=== PATIENT | male | born 1945 | race Caucasian/White ===

== ENCOUNTER 2017-11-12 09:05 | Emergency (ER) | payer OTHER ==
[~2017-11-12] VITALS: Ht 185.4 cm; Wt 95.0 kg
[~2017-11-12 09:05] MED LIST: COQ150CA OR; DICL75 PO; DIVA250ER PO; FLEC100 PO; GLUC15009 PO; HAWT1CAP PO; METO50TA PO; RIVA20 PO; SUMA50 PO; ZOCO20TA PO
[2017-11-12 09:10] VITALS: BP 166/100; PULSE 84; RESP 16; TEMP 98.1; O2SAT 98
[2017-11-12] MEDS ORDERED: LISI2.5T3 PO (09:22)
[2017-11-12] MEDS ORDERED: FISHCAP4 PO (09:22)
[2017-11-12] MEDS ORDERED: SOTA80TA PO (09:22)
[2017-11-12] MEDS ORDERED: GLUC500T4 PO (09:22)
[2017-11-12] MEDS ORDERED: ASPI81CH6 CHEW (09:22)
[2017-11-12] MEDS ORDERED: ATOR20TA15 PO (09:22)
[2017-11-12] MEDS ORDERED: VITA250C3 CHEW (09:22)
[2017-11-12] MEDS ORDERED: VITA500T4 PO (09:22)
[2017-11-12] MEDS ORDERED: COQ-100C5 PO (09:22)
[2017-11-12] MEDS ORDERED: tumeric PO (09:22)
[2017-11-12] MEDS ORDERED: LISI10TA3 PO (09:23)
[2017-11-12] MEDS ORDERED: AMLO2.5T PO (09:23)
--- NOTE | 2017-11-12 09:32 | PD ---
HPI Chief Complaint: Cardiac Complaint Time Seen by Provider: 09:15 Travel History International Travel<30 days: No Contact w/Intl Traveler<30days: No Traveled to known affect area: No History of Present Illness HPI 72yo M with PMH of HTN presents to the ED for atrial fibrillation. Pt said he was feeling funny 2 weeks ago and went to a production associate in [place] and had a recorder on for 5 days. Pt receive a call from their office yesterday that he was in atrial fibrillation or atrial flutter for 5 days. Pt has a history of atrial fibrillation and had ablation 3 years ago that seems to have resolved it. Pt moved here and does not have a production associate yet. Denies any fever, chest pain, sob, n/v, abdominal pain, focal weakness or numbness. PFSH Past Medical History Heart Rhythm Problems: Yes (afib, also mitral valve leak) Cancer: Yes (prostate) Cardiovascular Problems: Yes (CARDIAC RYTHM PROBLEMS) High Cholesterol: Yes Coronary Artery Disease: Yes Diminished Hearing: No Genitourinary: Yes Hypertension: Yes Musculoskeletal: No Neurologic: No Immunizations Current: Yes Triglycerides - High: Yes Influenza Vaccination: No Past Surgical History Abdominal Surgery: Yes (hernia) Body Medical Devices: pins in jaw Cardiac Surgery: Yes (2 ABLATIONS) Other Surgery: Yes Social History Alcohol Use: Yes (2-3 DRINKS PER DAY) Tobacco Use: No Substance Use: No Allergies-Medications (Allergen,Severity, Reaction): Coded Allergies: flecainide (Verified Allergy, Unknown, 11/12/17) Reported Meds & Prescriptions Reported Meds & Active Scripts Active Eliquis (Apixaban) 5 Mg Tab 5 Mg PO BID 14 Days Reported Amlodipine (Amlodipine Besylate) 2.5 Mg Tab 2.5 Mg PO DAILY Lisinopril 10 Mg Tab 10 Mg PO HS Aspirin Low Dose (Aspirin) 81 Mg Chew 81 Mg CHEW DAILY Glucosamine-Chondroitin 500-400 Mg Tab 1 Tab PO DAILY Vitamin B-12 (Cyanocobalamin) 500 Mcg Tab 1,000 Mcg PO DAILY Fish Oil + D3 (Fish Oil-Cholecalciferol) 1,200-1,000 Mg-Unit Cap 1 Cap PO DAILY [tumeric] 1,000 Mg PO DAILY Vitamin C (Ascorbic Acid) 250 Mg Chew 500 Mg CHEW BID Coq-10 Tr (Coenzyme Q10 (Ubidecarenone)) 100 Mg Cap 100 Mg PO BID Atorvastatin (Atorvastatin Calcium) 20 Mg Tab 20 Mg PO HS Sotalol (Sotalol HCl) 80 Mg Tab 80 Mg PO BID Review of Systems Except as stated in HPI: all other systems reviewed are Neg Physical Exam Narrative GENERAL: 72yo M not in distress. SKIN: Focused skin assessment warm/dry. HEAD: Atraumatic. Normocephalic. CARDIOVASCULAR: Irregular, in the 90s. No murmur appreciated. RESPIRATORY: No accessory muscle use. Clear to auscultation. Breath sounds equal bilaterally. GASTROINTESTINAL: Abdomen soft, non-tender, nondistended. MUSCULOSKELETAL: No obvious deformities. No clubbing. No cyanosis. No edema. NEUROLOGICAL: Awake and alert. No obvious cranial nerve deficits. Motor grossly within normal limits. Normal speech. PSYCHIATRIC: Appropriate mood and affect; insight and judgment normal. Data Data Last Documented VS Vital Signs Date Time Temp Pulse Resp B/P (MAP) Pulse Ox O2 Delivery O2 Flow Rate FiO2 11/12/17 10:26 93 18 116/97 (103) 98 Room Air 11/12/17 09:10 98.1 Orders Orders Complete Blood Count With Diff (11/12/17 09:27) Basic Metabolic Panel (Bmp) (11/12/17 09:27) Magnesium (Mg) (11/12/17 09:27) Thyroid Stimulating Hormone (11/12/17 09:27) Apixaban (Eliquis) (11/12/17 10:30) Labs Laboratory Tests Test 11/12/17 09:40 White Blood Count 6.3 TH/MM3 Red Blood Count 5.56 MIL/MM3 Hemoglobin 15.9 GM/DL Hematocrit 48.3 % Mean Corpuscular Volume 86.8 FL Mean Corpuscular Hemoglobin 28.6 PG Mean Corpuscular Hemoglobin Concent 32.9 % Red Cell Distribution Width 14.1 % Platelet Count 235 TH/MM3 Mean Platelet Volume 7.9 FL Neutrophils (%) (Auto) 72.2 % Lymphocytes (%) (Auto) 17.6 % Monocytes (%) (Auto) 6.6 % Eosinophils (%) (Auto) 3.0 % Basophils (%) (Auto) 0.6 % Neutrophils # (Auto) 4.6 TH/MM3 Lymphocytes # (Auto) 1.1 TH/MM3 Monocytes # (Auto) 0.4 TH/MM3 Eosinophils # (Auto) 0.2 TH/MM3 Basophils # (Auto) 0.0 TH/MM3 CBC Comment DIFF FINAL Differential Comment Blood Urea Nitrogen 14 MG/DL Creatinine 0.97 MG/DL Random Glucose 104 MG/DL Calcium Level 8.8 MG/DL Magnesium Level 1.9 MG/DL Sodium Level 139 MEQ/L Potassium Level 4.3 MEQ/L Chloride Level 104 MEQ/L Carbon Dioxide Level 27.8 MEQ/L Anion Gap 7 MEQ/L Estimat Glomerular Filtration Rate 76 ML/MIN Thyroid Stimulating Hormone 3rd Gen 1.410 uIU/ML [facility] Medical Decision Making Medical Screen Exam Complete: Yes Emergency Medical Condition: Yes Interpretation(s) EKG: Afib at 96bpm. PVCs. No ST segment elevation or depression. Differential Diagnosis Recurrent atrial fibrillation vs. electrolyte abnormality vs. hyperthyroidism Narrative Course 72yo M here because he was told that he has been in afib. Pt is not complaining of any symptoms and currently rate is in the 90s. Labs reviewed, no leukocytosis. BMP unremarkable. TSH normal. [id number] score of 2 so I would recommend anticoagulation. Pt was on anticoagulation when he had afib 3 years ago but cant remember what it was. Will start him on eliquis. First dose given here. Will refer him to our production associate. Return precautions given. Diagnosis Primary Impression: Atrial fibrillation Qualified Codes: I48.91 - Unspecified atrial fibrillation Referrals: Rolando Hernandez MD Patient Instructions: General Instructions Departure Forms: Tests/Procedures Additional Instructions: Please follow up with cardiology as soon as possible. Return to the ED if you have chest pain, sob, or any other symptoms. Med/Other Pt SpecificInfo: Prescription(s) given Scripts Apixaban (Eliquis) 5 Mg Tab 5 MG PO BID for Blood Clot Prevention for 14 Days, #28 TAB 0 Refills Prov: Swetha Coulter 11/12/17 Disposition: 01 DISCHARGE HOME Condition: Stable Swetha Coulter Nov 12, 2017 09:32
[2017-11-12 09:43] LABS: AUTOMATED NEUTROPHIL # 4.6 TH/MM3 (1.8-7.7); BASOPHIL % 0.6 % (0.0-2.0); EOSINOPHIL # 0.2 TH/MM3 (0-0.4); HEMATOCRIT 48.3 % (39.0-51.0); HEMOGLOBIN 15.9 GM/DL (13.0-17.0); LYMPH % 17.6 % (9.0-44.0); LYMPHOCYTE # 1.1 TH/MM3 (1.0-4.8); MEAN CELL VOLUME 86.8 FL (80.0-100.0); MEAN CORPUSCULAR HEMOGLOBIN 28.6 PG (27.0-34.0); MEAN CORPUSCULAR HGB CONC 32.9 % (32.0-36.0); MEAN PLATELET VOLUME 7.9 FL (7.0-11.0); MONO % 6.6 % (0.0-8.0); MONOCYTE # 0.4 TH/MM3 (0-0.9); NEUT % 72.2 % (16.0-70.0); PLATELET COUNT 235 TH/MM3 (150-450); RED BLOOD COUNT 5.56 MIL/MM3 (4.50-5.90); RED CELL DISTRIBUTION WIDTH 14.1 % (11.6-17.2); WHITE BLOOD COUNT 6.3 TH/MM3 (4.0-11.0)
[2017-11-12 09:55] LABS: BICARBONATE 27.8 MEQ/L (21.0-32.0); CALCIUM 8.8 MG/DL (8.5-10.1); MAGNESIUM 1.9 MG/DL (1.5-2.5)
[2017-11-12 09:59] LABS: CREATININE 0.97 MG/DL (0.60-1.30)
[2017-11-12 10:26] VITALS: BP 116/97; PULSE 93; RESP 18; O2SAT 98
[2017-11-12] MEDS ORDERED: APIX5TAB PO (10:26)
[2017-11-12] MEDS ORDERED: APIXABAN 5 MG TABLET PO ONE (10:30)
--- NOTE | 2017-11-13 12:25 | EKG ---
Date Performed: 11/12/2017 Time Performed: 09:17:12 PTAGE: 72 years EKG: ATRIAL FIBRILLATION WITH ABERRANT CONDUCTION OR VENTRICULAR PREMATURE COMPLEXES Compared to previous tracing, atrial fibrillation and ventricular ectopy new Clinical correlation is recommended ABNORMAL RHYTHM ECG NO PREVIOUS TRACING DOCTOR: Marty Shipley Interpretating Date/Time 11/13/2017 12:23:01
[2017-11-15] MEDS ORDERED: TURM500C7 PO (10:58)
== END 2017-11-12 10:52 | disposition home or self-care (01) ==
LOC: PHED 09:05
DX: I48.91 Unspecified atrial fibrillation (principal); I10 Essential (primary) hypertension; E78.00 Pure hypercholesterolemia, unspecified; I25.10 Atherosclerotic heart disease of native coronary artery without angina pectoris; Z79.01 Long term (current) use of anticoagulants; Z79.82 Long term (current) use of aspirin
CPT/HCPCS: 80048; 83735; 84443; 85025; 93005; 99284

== ENCOUNTER 2018-06-28 07:00 | Inpatient (IN) ==
[2018-07-26] MEDS ORDERED: Metoprolol Tartrate 25 MG Tablet PO ONE (07:28)
[2018-07-26] MEDS ORDERED: Chlorhexidine Gluconate 2% 1 Pack (2 Cloths) TOPICAL ONE (07:28)
[2018-07-26] MEDS ORDERED: Chlorhexidine 4% Topical 120 APPLIC/120 ML Bottle TOPICAL SCH (07:30)
[2018-07-26] MEDS ORDERED: Sodium Chlor 0.9% Inj 40 ML, Bupivacaine Liposo PF 1.3% Inj 20 ML P-ARTICULR SCH ×2 (07:30)
[2018-07-26] MEDS ORDERED: Dexamethasone Inj 20 MG/5 ML Vial IV.PUSH SCH (07:45)
[2018-07-26] MEDS ORDERED: Vancomycin Inj 1,000 MG in Sodium Chlor 0.9% Inj 250 ML IV.SIG SCH (08:00)
[2018-07-26] MEDS ORDERED: TRANEXAMIC ACID IV.SIG SCH ×2 (08:00→13:00)
[2018-07-26] MEDS ORDERED: SODIUM CHLOR 0.9% IV.SIG SCH ×2 (08:00→13:00)
[2018-07-26] MEDS ORDERED: ceFAZolin 2 GM Premix Inj 2 GM/50 ML PIGGYBACK IV.SIG SCH (08:00)
[2018-07-26] MEDS ORDERED: Sodium Chlor 0.9% Inj 500 ML IV.SIG SCH (08:00)
[2018-07-26] MEDS ORDERED: fentaNYL Citrate Inj 250 MCG/5 ML Ampul ONE (09:21)
[2018-07-26] MEDS ORDERED: fentaNYL Citrate Inj 100 MCG/2 ML Ampul ONE (09:21)
[2018-07-26] MEDS ORDERED: Famotidine PF Inj 20 MG/2 ML Vial ONE (09:21)
[2018-07-26] MEDS ORDERED: Phenylephrine/NS 1000 MCG/10ML Syringe IV.PUSH ONE (09:42)
[2018-07-26] MEDS ORDERED: Lidocaine PF 1% Inj 5 ML Syringe OTHER ONE (09:42)
[2018-07-26] MEDS ORDERED: Sugammadex Inj 200 MG/2 ML Vial IV.PUSH ONE (11:31)
[2018-07-26] MEDS ORDERED: Bisacodyl 10 MG Supp RECTAL PRN (11:33)
[2018-07-26] MEDS ORDERED: Morphine Inj 4 MG/ML Vial IV.PUSH PRN (11:33)
[2018-07-26] MEDS ORDERED: Aluminum/Magnesium/Simethacone Susp 30 ML UDC PO PRN (11:33)
[2018-07-26] MEDS ORDERED: Post-op Orders (for Pharmacy) OTHER STA (11:33)
--- NOTE | 2018-07-26 11:36 | P.OP ---
- Preoperative Diagnosis (1) Osteoarthritis of left hip - Postoperative Diagnosis (1) Osteoarthritis of left hip Date of procedure: 07/26/18 Procedure: Left total hip arthroplasty Anesthesia: GETA Surgeon: Rafael Rothman MD Retail Consultant: DRAGAN Cobos The surgical procedure was assisted by my Advanced Registered Nurse Practitioner. My MACHINIST/MACHINE BUILDER presence was necessary throughout this case for the manipulation and positioning of the surgical extremity. My MACHINIST/MACHINE BUILDER was assisting me throughout the duration of this procedure. The skill set of an Advance Registered Nurse Practitioner was medically necessary to complete this procedure. During the surgical case, the neurosurgical nurse practitioner was working at the back table and the Advance Registered Nurse Practitioner was directly assisting me. Operation and Findings: IMPLANT DESCRIPTION: 1. [place] Gription Cup, acetabular size 56. 2. [place] AltrX polyethylene, neutral. 4. [place] femoral stem size 11, no collar, standard offset. 5. Femoral head/neck metal, 36, -2. ESTIMATED BLOOD LOSS: 200 cc. JUSTIFICATION FOR PROCEDURE: The patient has end-stage osteoarthritis to the hip. There is an attached conservative measures pathway form in the chart that describes the nonoperative measures that were undertaken prior to consideration of surgical management. The patient understood the risks and benefits of surgical management. See my office notes for further details. PROCEDURE: The patient was brought back to the operative theatre. Adequate anesthesia was obtained. The patient received intravenous vancomycin and Ancef. The patient was carefully placed on the operative table. The lower extremity was prepped and draped in the usual sterile fashion. Fluoroscopic images were obtained. We made a standard anterior incision over the hip. We dissected through the TFL fascia, exposing the anterior capsule. Arthrotomy was performed in a T-shaped fashion. The capsule was tagged with a #2 FiberWire. End-stage arthritis was identified. Osteotomy was performed through the femoral neck exposing the acetabulum. Remnants of the labrum were resected and osteophytes were removed. We sequentially reamed the acetabulum. We trialed the hip and placed the final cup into position. This was done under fluoroscopic guidance to obtain the appropriate inclination and anteversion. A manhole cover was placed into the acetabular component. We then placed the final polyethylene into position and confirmed that it was well seated. Capsular attachments on the calcar and the inner aspect of the greater trochanter were resected. On the proximal aspect of the femur we used a rongeur , box osteotome, canal finder, sequential broaches and lateralizing rasp. We calcar planed the proximal femur. Then thoroughly irrigated the wound. We trialed the hip with the appropriate size stem. We placed the final stem in to position and trialed again. The hip was stable while it was externally rotated 70 degrees when the leg was lowered to the floor. The final head was applied, and final fluoroscopic images were obtained. The wound was thoroughly irrigated again. Interarticular injection of liposomal bupivacaine was given. The capsule was closed with #2 FiberWire and #1 Vicryl. The deep fascia was closed with a #2 Stratafix, followed by 2-0 Vicryl in the skin and Dermabond dressing. Postop plan is to weight-bear as tolerated. DVT prophylaxis will be performed with SCDs, LIU joshua, early mobilization, and Lovenox followed by aspirin.
[2018-07-26] MEDS ORDERED: *morphine SULFATE 4 MG/ML PERIprocedure ONLY ONE ×2 (12:13→12:27)
[2018-07-26] MEDS: Sod Chloride 0.9% Inj 1,000 ML IV.CONT SCH (12:20)
[2018-07-26] MEDS ORDERED: *Meperidine Inj 25 MG/ML Vial PERIprocedural Use ONLY ONE (12:27)
[2018-07-26] MEDS ORDERED: *morphine SULFATE 10 MG/ML PERIprocedure ONLY ONE (12:53)
--- NOTE | 2018-07-26 13:00 | XR ---
EXAM DATE: 07/26/2018 12:00 AM EDT AGE/SEX: 72 years / Male INDICATIONS: Left total hip replacement. CLINICAL DATA: This is the patient's initial encounter. Patient reports that signs and symptoms have been present for 1 day and indicates a pain score of Nonresponsive. MEDICAL/SURGICAL HISTORY: Non-responsive. Non-responsive. COMPARISON: No prior exams available for comparison. FINDINGS: 3 magnified C-arm spot views are centered over the hips and labeled left. A total hip prosthesis is s een and in good position. No gross fracture on this style of acquisition. CONCLUSION: Total hip prosthesis. Electronically signed by: Blaise Mcmanus MD 07/26/2018 12:59 PM EDT
--- NOTE | 2018-07-26 13:19 | XR ---
EXAM DATE: 07/26/2018 11:33 AM EDT AGE/SEX: 72 years / Male INDICATIONS: Post op left hip surgery. CLINICAL DATA: This is the patient's initial encounter. Patient reports that signs and symptoms have been present for 1 day and indicates a pain score of Nonresponsive. MEDICAL/SURGICAL HISTORY: Non-responsive. Non-responsive. COMPARISON: POI, XR HIP W/ AP PELVIS, BILATERAL, 08/22/2015. . FINDINGS: Views of the pelvis and 2 additional views left hip demonstrates left hip arthroplasty. No hardware l oosening. No acute fracture. Postsurgical changes. Prosthetic seeds are seen. Degenerative changes ri ght hip. CONCLUSION: Postoperative changes left hip. Electronically signed by: Giovany Gil MD 07/26/2018 1:17 PM EDT
--- NOTE | 2018-07-26 14:20 | ECG ---
Date Performed: 07/26/2018 Time Performed: 12:21:15 PTAGE: 72 years EKG: ATRIAL FIBRILLATION NONSPECIFIC ST ABNORMALITY ABNORMAL ECG PREVIOUS TRACING : 11/12/2017 09.17 No significant change from previous tracing noted. DOCTOR: Clive Pro Interpretating Date/Time 07/26/2018 14:19:43
--- NOTE | 2018-07-26 15:33 | P.DCO ---
- Physical Therapy Physical Therapy: Gait training, Transfer training, bed to chair Hip: Total hip Left Lower Extremity Weight Bearing: Weight bearing as tolerated Left Lower Extremity Range of Motion: Active ROM - Nursing Dressing changes: Do not change dressing - Certification Need for Home Health services: I have seen patient Yobany Shultz on 07/26/18. My clinical findings support the need for the requested home health care services because: Need for Home Health Services: Limited ability to care for self, High risk of falls Homebound Certification: I certify that my clinical findings support that this patient is homebound because: Homebound Certification: Post-op weakness, Unsteady gait/balance
[2018-07-26] MEDS: Multivitamin/Minerals Therapeutic Tablet PO SCH (20:35)
[2018-07-26] MEDS: Senna/Docusate Sodium 8.6/50 MG Tablet PO SCH (20:36)
[2018-07-26] MEDS ORDERED: Zolpidem Tartrate 5 MG Tablet PO PRN (21:00)
[2018-07-26] MEDS ORDERED: Lisinopril 10 MG Tablet PO SCH (21:00)
--- NOTE | 2018-07-27 01:44 | MB ---
cc: Demetri Coleman Vincent G DO DATE: 07/26/2018 REASON FOR CONSULTATION: Atrial fibrillation. HISTORY OF PRESENT ILLNESS: Yobany Shultz is a pleasant 72-year-old male who sees my partner, Dr. Medina, in the office and underwent elective left total hip arthroplasty by Dr. Rothman today. I was asked by anesthesia to see him due to his history of atrial fibrillation. Mr. Shultz has had a long history of atrial fibrillation including multiple ablations. He continues to have paroxysmal atrial fibrillation, but since being placed on sotalol, he has done overall well with this. He states even when he is in atrial fibrillation that his heart rate has tripled on sotalol. During the procedure and post-procedure, he has been in atrial fibrillation with controlled ventricular response. In seeing him postoperatively he is doing well with no chest pain, shortness of breath, or palpitations. PAST MEDICAL HISTORY: 1. Paroxysmal atrial fibrillation. 2. Arthritis. 3. COPD. 4. Hyperlipidemia. 5. Shingles. 6. Hypertension. 7. Joint pain. 8. Migraines. 9. Prostate cancer. PAST SURGICAL HISTORY: 1. Left total arthroplasty (07/26/2018). 2. Multiple atrial fibrillation ablations. 3. Hand surgery. 4. Inguinal hernia repair. 5. Mandibular surgery. 6. Mitral valve repair. 7. Tonsillectomy. ALLERGIES: FLECAINIDE. MEDICATIONS: 1. Lisinopril 10 mg every night. 2. Sotalol 120 mg b.i.d. 3. Co-Q10 100 mg b.i.d. 4. Eliquis 5 mg b.i.d. FAMILY HISTORY: Denies premature coronary artery disease or sudden cardiac within the family. SOCIAL HISTORY: The patient is a former smoker. He rarely drinks alcohol. Denies substance abuse. REVIEW OF SYSTEMS: Fourteen systems were reviewed including osteopathic. Pertinent positives and negatives above, otherwise negative. PHYSICAL EXAMINATION: VITAL SIGNS: Temperature 98.2, heart rate 82, blood pressure 137/90, respirations 18, pulse oximetry 97% on 2 liters nasal cannula. GENERAL: The patient appears well, in no acute distress. Alert, awake and oriented x3. HEENT: Extraocular muscles intact. Mucous membranes moist. NECK: Supple. No JVD at 45 degrees. No carotid bruits heard bilaterally. Carotid upstroke is brisk in nature. HEART: Irregularly irregular. Positive first and second sounds with no noted murmurs, gallops or rubs. LUNGS: Clear to auscultation bilaterally. No wheezes, rales, or rhonchi. ABDOMEN: Soft, nontender, nondistended. No organomegaly noted. EXTREMITIES: Show no clubbing, cyanosis, or edema. Femoral and distal pulses are intact bilaterally. NEUROLOGIC: No focal deficits. SKIN: Warm, dry and intact. OSTEOPATHIC: No kyphoscoliosis, lordosis or paraspinal tender points. Electrocardiogram (07/26/2018 at 12:21): Atrial fibrillation with controlled ventricular response. IMPRESSION: 1. Paroxysmal atrial fibrillation. 2. Left total hip arthroplasty, postop day #0. 3. Mild chronic obstructive pulmonary disease. 4. Hyperlipidemia. 5. History of mitral valve prolapse, status post mitral valve repair. 6. Hypertension. 7. Migraines. 8. Prostate cancer. RECOMMENDATIONS: 1. Mr. Shultz underwent left total hip arthroplasty and this will be managed by orthopedics as well as physical therapy. 2. As far as his atrial fibrillation goes, he has a known history of this and this has been controlled with sotalol and today he will continue on his current medications. 3. He has been started on Eliquis 2.5 mg b.i.d. by orthopedics and per their report, he will be discharged back on his Eliquis 5 mg b.i.d. 4. No further workup necessary from a cardiovascular standpoint. He may be discharged home when okay by orthopedics. 5. He will followup with Dr. Medina as previously scheduled. Thank you for allowing me to see Yobany Shultz. If there are any questions, please do not hesitate to call. Demetri Coleman, DO PANCHALP/ , 12:12 AM , 12:23 AM
[2018-07-27] MEDS: Sod Chloride 0.9% Inj 1,000 ML IV.CONT SCH (03:08)
[2018-07-27 04:08] VITALS: RESP 18
[2018-07-27 07:15] LABS: Hematocrit 41.5 % (39.0-51.0)
--- NOTE | 2018-07-27 07:17 | P.PNOP ---
Subjective Interval history: The patient is resting comfortably in bed in no acute distress. The patient reports no pain to the left hip when stationary. The patient reports mild to moderate discomfort with activity. The patient states he does want to go home today with home health. Physical Exam Vital signs: Vital Signs 07/26/18 07:46 07/26/18 12:04 07/26/18 12:15 Temperature 98.8 F 98.5 F Pulse Rate 78 62 64 Respiratory Rate 16 6 L 16 Blood Pressure 152/105 H 141/80 H 149/100 H Pulse Oximetry 99 97 100 07/26/18 12:30 07/26/18 12:45 07/26/18 12:50 Temperature Pulse Rate 73 65 Respiratory Rate 10 L 15 17 Blood Pressure 155/84 H 132/85 Pulse Oximetry 100 96 07/26/18 13:00 07/26/18 14:00 07/26/18 14:19 Temperature 97.8 F 98.7 F Pulse Rate 66 75 Respiratory Rate 17 Blood Pressure 128/96 H 134/98 H Pulse Oximetry 98 93 L 93 L 07/26/18 15:00 07/26/18 15:32 07/26/18 15:35 Temperature Pulse Rate 76 Respiratory Rate 17 14 Blood Pressure 137/90 Pulse Oximetry 97 97 07/26/18 16:00 07/26/18 20:00 07/26/18 23:20 Temperature 98.6 F 98.4 F Pulse Rate 100 H 87 Respiratory Rate 18 20 17 Blood Pressure 166/97 H 148/99 H Pulse Oximetry 96 97 07/26/18 23:50 07/27/18 03:37 07/27/18 04:13 Temperature 98.6 F 98.2 F Pulse Rate 92 H 60 Respiratory Rate 17 18 18 Blood Pressure 118/84 122/74 Pulse Oximetry 95 95 Intake & Output 07/26/18 07/27/18 07/27/18 18:59 06:59 18:59 Intake Total 2428.92 / 2428.92 1100 / 1100 Output Total 700 / 700 Balance 1728.92 / 1728.92 1100 / 1100 Weight 89.2 kg 90 kg Intake: IV 1508.92 / 1508.92 1100 / 1100 NS Inj 1,000 ML @ 80 mls/hr IV. 1000 / 1000 CONT .[id number] [facility] Rx#:[id number] LR 1000 mL Inj 1,000 ML @ 30 1000 / 1000 mls/hr IV.SIG .Q24H [facility] Rx#: [id number] Cyklokapron Inj 892 MG In NS 108.92 / 108.92 Inj 100 ML @ 200 mls/hr IV.SIG ONCE [facility] Rx#:[id number] Vancomycin Inj 1,000 MG In NS 250 / 250 Inj 250 ML @ 250 mls/hr IV.SIG [employer] [facility] Rx#:[id number] Ancef 2 GM Premix Inj 2 gm In 50 / 50 50 ml @ 100 mls/hr IV.SIG [employer]IN DR[employer] [facility] Rx#:[id number] Ancef Inj 1,000 MG In NS Inj 100 / 100 100 / 100 100 ML @ 200 mls/hr IV.SIG Q6H [facility] Rx#:[id number] Oral 120 / 120 Anesthesia Amount 800 / 800 Output: Urine 500 / 500 Estimated Blood Loss 200 / 200 Other: # Voids 3 Date of Last Bowel Movement 07/26/18 07/26/18 Weight On Admission 89.2 kg Narrative: The patient's dressing is clean, dry, and intact. EHL/TA/G are intact. 2+ pedal pulse. The patient's calf is soft and nontender. Sensation is intact to light touch distally. Results - Labs CBC & Chem 7: 07/27/18 03:51 Laboratory Results - last 24 hr 07/26/18 07:00 Blood Type O Positive Blood Type Recheck Required Antibody Screen Negative - Imaging Impressions Hip X-Ray 07/26/18 00:00 CONCLUSION: Total hip prosthesis. Hip X-Ray 07/26/18 11:33 CONCLUSION: Postoperative changes left hip. - Procedures Left total hip arthroplasty Assessment and Plan - Problem List (1) Status post total hip replacement, left Code(s): Z96.642 - Presence of left artificial hip joint Status: Acute (2) Osteoarthritis of left hip Code(s): M16.12 - Unilateral primary osteoarthritis, left hip Status: Acute - Assessment and Plan POD #1: Left total hip arthroplasty 1. Weightbearing as tolerated on left lower extremity. 2. Eliquis 2.5 mg twice daily while in the hospital and then resume Eliquis 5 mg twice daily at home for DVT prophylaxis. 3. Ice as needed for swelling. 4. Stable per ortho for discharge to home health today after his class. 5. The patient will follow up with Dr. Rothman and/or DRAGAN Muñoz as previously scheduled.
[2018-07-27 07:45] VITALS: O2SAT 97
[2018-07-27] MEDS ORDERED: Dexamethasone Inj 20 MG/5 ML Vial IV.PUSH ONE (08:00)
[2018-07-27] MEDS: Multivitamin/Minerals Therapeutic Tablet PO SCH (08:23)
[2018-07-27] MEDS: Senna/Docusate Sodium 8.6/50 MG Tablet PO SCH (08:23)
[2018-07-27 12:05] VITALS: BP 129/79; PULSE 62; TEMP 97.8
--- NOTE | 2018-07-28 09:54 | P.DS ---
Date of admission: 07/26/18 06:39 Primary care physician: Collins Esposito MD Attending physician on discharge: Rafael Rothman Anticipated date of discharge: 07/27/18 Brief History from admission: The patient was admitted to the hospital for severe osteoarthritis of the left hip to have a left total hip arthroplasty. DS: Diagnosis - Discharge Diagnosis (1) Status post total hip replacement, left Status: Acute (2) Osteoarthritis of left hip Status: Acute DS: Summary Hospital Course: The patient was admitted to the hospital for severe osteoarthritis of the left hip to have a left total hip arthroplasty. The patient's surgery went well with no complication. The patient is on a [regular] diet. The patient's DVT prophylaxis includes use of Eliquis. The patient is weightbearing as tolerated. The patient was discharged [home with home health] and will follow up in the office with Dr. Rothman and/or DRAGAN Muñoz as previously scheduled. - Time Spent with Patient Total time spent providing and/or coordinating discharge services: Greater than 30 minutes - Quality: VTE Deep Vein Thrombosis/Pulmonary Embolism Present on Admission: No Exam Vital signs: Vital Signs 07/27/18 12:00 Temperature 97.8 F Pulse Rate 62 Respiratory Rate 18 Blood Pressure 129/79 Pulse Oximetry 97 Intake & Output 07/27/18 07/28/18 07/28/18 18:59 06:59 18:59 Intake Total 100 / 100 Balance 100 / 100 Intake: IV 100 / 100 Ancef Inj 1,000 MG In NS Inj 100 / 100 100 ML @ 200 mls/hr IV.SIG Q6H [facility] Rx#:[id number] Other: Date of Last Bowel Movement 07/26/18 Narrative: The patient's dressing is clean, dry, and intact. EHL/TA/G are intact. 2+ pedal pulse. The patient's calf is soft and nontender. Sensation is intact to light touch distally. Results Procedures completed during hospitalization: Left total hip arthroplasty - Impressions ITS Impressions Hip X-Ray 07/26/18 11:33 CONCLUSION: Postoperative changes left hip. Discharge Plan - Discharge Disposition Patient Disposition: W/Home Health Service - Discharge Condition Condition: Stable - Discharge Order Discharge Orders: Discharge Order (Routine); Ordered 07/26/18 Ordered By: Norman De Santiago - Discharge Details Anticipated Discharge Date: 07/27/18 - Physicians Team Primary Care Provider: Collins Esposito Attending Provider: Rafael Rothman Other Providers: Demetri Coleman DO ; [employer] - Rxs /Orders / Referrals /Forms Prescriptions: Continue apixaban [Eliquis] 5 mg Tablet 5 mg PO BID ascorbic acid (vitamin C) [Vitamin C] 500 mg Capsule, Extended Release 500 mg PO DAILY cyanocobalamin (vitamin B-12) [Vitamin B-12] 1,000 mcg Tablet 500 mcg PO DAILY levocarnitine [L-Carnitine] 500 mg Tablet 1,000 mg PO DAILY lisinopril 10 mg Tablet 10 mg PO HS magnesium oxide-Mg AA chelate [Magnesium (oxide/AA chelate)] 300 mg Capsule 1 cap PO DAILY yasyhxhrhpho-cit-syht-FA-vit K [Adults Multivitamin] 18 mg iron-400 mcg-25 mcg Tablet 1 tab PO DAILY sotalol 120 mg Tablet 120 mg PO Q12H Discontinued coQ10 (ubiquinol) 100 mg Capsule 100 mg PO BID glucosamine oxb-dfgjuftzul-pbm 500-200-150 mg Tablet 2 tab PO DAILY Ambulatory Orders / Order Sets / DME: Adjustable Commode 3-in-1 (1 each) (Routine) Location: Determined by Patient Ordered By: Norman De Santiago Walker With Front Wheels (1 each) (Routine) Location: Determined by Patient Ordered By: Norman De Santiago Referrals: Rafael Rothman MD [Physician] - See Instructions (The patient should follow with Dr. Rothman or Nate De Santiago APRN as previously scheduled) Collins Esposito MD [Primary Care Provider] - See Instructions - Discharge Instructions Additional Instructions: RX FOR NORCO GIVEN TO PATIENT PRIOR TO ADMISSION TO HOSPITAL. PATIENT STATES HE HAS ELIQUIS AT HOME. KEEP YOUR SCHEDULED FOLLOW UP APPOINTMENT WITH DR. ROTHMAN DISCUSSED. FOLLOW UP WITH YOUR PRIMARY CARE PROVIDER IN 3-4 DAYS. NO DRIVING WHILE TAKING NARCOTIC PAIN MEDICINE. WEIGHT BEARING TOLERATED. NO HEAVY LIFTING, BENDING, OR STRENUOUS ACTIVITY UNTIL CLEARED BY YOUR ORTHOPEDIC SURGEON. DO NOT CHANGE DRESSING. IT WAS A PLEASURE TAKING CARE OF YOU. WE WISH FOR YOU TO HEAL QUICKLY! - Post Discharge Care Plan Care Plan Goals: Discharge Care Plan Goals for Total Hip Replacement You had a hip replacement surgery. This means your natural hip was replaced with an artificial joint (prosthesis). You may be recovering at home or in a rehabilitation facility. Either way, you must take care of your new hip. Here are some goals to help you heal well. Directions to Meet your Goals: 1. Activity & Exercises: * Take pain medicine as directed by your doctor. * Dont drive until your doctor says its OK. And never drive while taking opioid pain medicine. * Wear the support stockings you were given in the hospital as directed by your surgeon. * Dont sit for more than 30 to 45 minutes at one time. * Dont lean forward while sitting. * Dont cross your legs. * Keep your feet flat on the floor. Dont turn your foot or leg inward. This stresses your hip joint. * Use an elevated toilet seat for 6 weeks after surgery. * Nap if you are tired, but dont stay in bed all day. * Sit on a firm cushion when you ride in a car and avoid sitting too low. Try not to bend your hip too much when getting in and out of the car. 2. Prevent Falls/Injury: * Follow your doctors orders regarding how much weight to put on the affected leg. * Dont bend at the hip when you bend over. Don't bend at the waist to put on socks and shoes. And avoid picking up items from the floor. * Use a cane, crutches, a walker, or handrails until your balance, flexibility, and strength improve. And remember to ask for help from others when you need it. * Free up your hands so that you can use them to keep balance. Use a asia pack , apron, or pockets to carry things. * Arrange your household to keep the items you need handy. Keep everything else out of the way. * Remove items that may cause you to fall, such as throw rugs and electrical cords. * Use nonslip bath mats, grab bars, an elevated toilet seat, and a shower chair in your bathroom * Sit on a shower stool or chair when you shower to keep from falling. 3. Precautions: * Prevent infection. Any infection will need to be treated immediately. Call your doctor right away if you think you might have an infection. * Tell your dentist that you have an artificial joint and take antibiotics as prescribed before any dental work. * Tell all your healthcare providers about your artificial joint before any medical procedure. * Maintain a healthy weight. Get help to lose any extra pounds. Added body weight puts stress on the joints. 4. Incision Care: * Prevent infection by washing your hands often. If an infection occurs, it will need to be treated right away. * Call your doctor right away if you think you may have an infection. Symptoms include a fever or an incision that leaks white, green, or yellow fluid. * Don't soak your incision in water until your doctor says its OK. This means no hot tubs, bathtubs, or swimming pools. * Follow your doctor's instructions for changing the dressing. * Dont rub the incision, or apply creams or lotions to it. * If you notice any redness or drainage around the bandage site, contact your surgeon's office immediately. 5. Follow-Up: Do Not miss your follow-up appointment. Keep up with all your appointments and yearly check ups When to call your doctor: Call your doctor right away if you have: Hip pain gets worse Pain or swelling in your calf or leg not related to your incision Tenderness or redness in your calf Fever of 100.4F (38C) or higher, or as directed by your healthcare provider Shaking chills Swelling or redness at the incision site gets worse Fluid draining from the incision Call 911: Call 911 right away if you have: Chest pain Shortness of breath Any pain or tenderness in your calf
== END 2018-07-27 14:07 | disposition home health service (06) ==
LOC: HSDI 07-26 06:39 → N06 07-26 16:23
PROVIDERS: ADMIT Orthopaedic Surgery; ATTEND Orthopaedic Surgery